=== PATIENT | male | born 2000 | race Caucasian/White ===

== ENCOUNTER 2022-12-28 14:36 | Emergency (ER) | payer BC ==
[2022-12-28] MEDS ORDERED: Sodium Chloride 0.9% 1,000 ML IV ONE (15:10)
[2022-12-28 15:16] LABS: A/G RATIO 1.1 (0.9-1.6); ALBUMIN 4.2 g/dL (3.4-5.0); BILIRUBIN TOTAL 0.7 mg/dL (0.2-1.0); CALCIUM 9.3 mg/dL (8.5-10.1); CARBON DIOXIDE,CO2 28.8 mmol/L (21.0-32.0); EST CRCL DRUG DOSING (CG) 104.07 mL/min; POTASSIUM,K 4.3 mmol/L (3.5-5.1)
[2022-12-28] MEDS ORDERED: Iopamidol 755 MG/ML 500 ML Multipack Bottle IVPUSH STA (16:14)
== END 2022-12-28 16:42 | disposition home or self-care (01) ==
LOC: MW.ED 14:36
DX: K92.2 Gastrointestinal hemorrhage, unspecified (principal); D64.9 Anemia, unspecified
CPT/HCPCS: 36415; 74177; 80053; 96360; 99285; J7030; Q9967; 99284

== ENCOUNTER 2023-01-11 06:33 | Day surgery (SDC) | payer BC ==
[~2023-01-11 06:33] MED LIST: Lactated Ringers 1,000 ML IV SCH
[2023-01-11] MEDS ORDERED: Lactated Ringers 1,000 ML IV SCH (07:15)
[2023-01-11] MEDS ORDERED: Lidocaine 2% 5 ML SDV ONE (08:03)
[2023-01-11] MEDS ORDERED: Propofol 200 MG/20 ML SDV ONE ×3 (08:03→08:34)
== END 2023-01-11 10:05 | disposition home or self-care (01) ==
LOC: MW.SDS 06:33
PROVIDERS: ATTEND Surgery
DX: K51.411 Inflammatory polyps of colon with rectal bleeding (principal); D64.9 Anemia, unspecified; K64.8 Other hemorrhoids; F17.290 Nicotine dependence, other tobacco product, uncomplicated
CPT/HCPCS: 43239; 45380; 45385; J2704; J7120; 00813; J3490